=== PATIENT | female | born 1995 | race Asian ===

== ENCOUNTER 2019-03-02 08:53 | Emergency (ER) | payer OTHER ==
[~2019-03-02] VITALS: Ht 157.5 cm; Wt 52.2 kg
[2019-03-02 08:58] VITALS: Ht 157.5 cm; Wt 52.2 kg
[2019-03-02 10:59] VITALS: BP 104/62
== END 2019-03-02 10:59 | disposition home or self-care (01) ==
LOC: ED 08:53
DX: R13.10 Dysphagia, unspecified (principal)